=== PATIENT | male | born 1945 ===

== ENCOUNTER → 2016-07-14 | Outpatient (CLI) | payer OTHER ==
--- NOTE | 2016-07-14 13:30 | DIREP ---
PROCEDURE:CHEST 2 VIEWS COMPARISON:None. INDICATIONS:CAD, SOB FINDINGS: LUNGS/PLEURA:No significant pulmonary parenchymal abnormalities. No effusions. VASCULATURE:Normal. Unremarkable pulmonary vasculature. CARDIAC:Normal. No cardiac silhouette abnormality or cardiomegaly. MEDIASTINUM:Normal. No visible mass or adenopathy. BONES:Normal. No fracture or visible bony lesion. OTHER:Negative. CONCLUSION:Normal examination. Dictated by: Jeff Varghese M.D. on 07/14/2016 at 12:28 PM Read in [place]
--- NOTE | 2016-07-16 13:22 | ECHO ---
DATE OF SERVICE: 07/14/2016 INDICATIONS: A 71-year-old gentleman with coronary artery disease. Echocardiographic study was requested to evaluate systolic and diastolic function, any wall motion abnormality or structural heart disease. FINDINGS: 1. Study quality was fair. 2. Underlying rhythm is sinus rhythm. 3. LV function was preserved. EF was around 55-60%, mild degree of septal hypokinesia noted. LV cavity showed moderate degree of LVH. Septal thickness was 0.9 cm, end diastolic dimension was 3.7 cm, normal. LV maximum thickness was 1.78 cm in diastole 4. RV size and EF were normal. 5. Both atria were normal in size. 6. Mitral valve showed mild mitral regurgitation, no evidence of mitral stenosis. Doppler signal examination across the mitral inflow showed E to A reversal with grade 1 diastolic dysfunction. The mean gradient across the mitral valve was 1 mmHg ruling out stenosis. 7. LVOT dimension and velocities were normal. 8. Aortic valve showed minimal calcification. Doppler signal examination showed a mean velocity of 0.8 meter per second, aortic valve area was 2.5 cm2, normal. 9. Mild tricuspid regurgitation. Pulmonary artery systolic pressure was between 30-35 mmHg. 10. No pericardial effusion. 11. Inferior vena cava was normal in size at 1.5 cm. IMPRESSION: 1. Preserved EF around 55-60%, mild septal hypokinesia. 2. Moderate concentric LVH. No LVOT obstruction. 3. Normal RV dimensions. 4. Normal atrial dimension. 5. Trace mitral regurgitation, no stenosis. 6. Grade 1 diastolic dysfunction. 7. No significant aortic pathology. 8. Normal pulmonary artery systolic pressure. 9. No pericardial effusion. 10. Normal IVC size at 1.5 cm. Case Weir MD DR: PATTI/cal JOB# [id number]
== END | disposition home or self-care (01) ==
LOC: RT 13:04
PROVIDERS: ATTEND Nurse Practitioner Family
DX: I25.10 Atherosclerotic heart disease of native coronary artery without angina pectoris (principal); R06.02 Shortness of breath
CPT/HCPCS: 71020; 93307